=== PATIENT | male | born 1970 | race Caucasian/White ===

== ENCOUNTER 2017-03-12 15:30 | Emergency (ER) | payer OTHER ==
--- NOTE | 2017-03-22 10:27 | ER ---
ADMIT: 03/12/2017 RM/LOC: ER [facility] MR#: [id number] [address] [id number] DAHIANA THA [address] [place], [place] [id number] Emergency Room Report SEX: M AGE: 47 : 1970 DATE: 03/12/2017 HISTORY OF PRESENT ILLNESS: The patient is a 47-year-old presents to the emergency room complaining of electrical shocks to the arms, lower body, and spine. He said he was coming from [facility] today and the discomfort was unbearable. He ended up going to the [place] to get medications and assessment, and he reports that Dr. Garcia saw him and sent him over to us because of her concern about the patient being unsteady on his feet. He came via ambulance. His vitals; blood pressure 184/96 with a pulse of 63, respirations 18, temp is 97.4, and O2 sats 98%. He has PTSD and depression. He has had L1 and L2 disk problems with hyperlipidemia. On physical examination, he has good rectal tone. No paresthesia in the lower extremities. He got up pretty swiftly from the bed, but showed me that he is unable to ambulate properly because of discomfort he has in the lower back. Recommended followup with the [facility]. He was given a shot of Nubain and Decadron and encouraged to take Percocet until he sees his provider. Given the 20 Percocet. He did try to tell me he wanted hydrocodone 10s and bargaining a little bit with his medications, so he is going to go ahead and take the Percocet I gave him and follow up without any other changes. Continue home medications. CLINICAL IMPRESSION: 1. Chronic back pain. 2. Lumbar disc problems. SJ Graff / Clement Sharp MD / chica JOB #: [id number] CC: Clement Sharp MD, Attending Physician [facility], Family Physician
== END 2017-03-12 17:20 | disposition home or self-care (01) ==
LOC: ER 15:30
DX: M51.9 Unspecified thoracic, thoracolumbar and lumbosacral intervertebral disc disorder (principal); G89.29 Other chronic pain; I10 Essential (primary) hypertension; Z86.59 Personal history of other mental and behavioral disorders; Z88.0 Allergy status to penicillin; Z79.899 Other long term (current) drug therapy